=== PATIENT | male | born 1975 | race Asian ===

== ENCOUNTER 2017-08-07 02:17 | Emergency (ER) | payer OTHER ==
[~2017-08-07] VITALS: Ht 162.6 cm; Wt 99.5 kg
[2017-08-07] MEDS ORDERED: KETOROLAC 30 MG/ML VIAL. IV ONE (03:00)
[2017-08-07] MEDS ORDERED: CONTRAST GIVEN MC PRN (03:00)
[2017-08-07] MEDS ORDERED: IOHEXOL 300 MG/ML 75 ML VIAL. IV ONE (03:00)
[2017-08-07] MEDS ORDERED: IV NORMAL SALINE 1,000ML 1,000 ML IV SCH (03:00)
[2017-08-07 03:06] LABS: BASO # 0.2 x10^3/uL (0.0-0.2); BASO % 1 % (0-3); EOS # 0.2 x10^3/uL (0.0-0.7); EOS % 2 % (0-3); HEMATOCRIT 46.7 % (39.0-53.0); LYMPH # 3.4 x10^3/uL (1.0-4.8); LYMPH % 25 % (24-48); MEAN CORPUSCULAR HEMOGLOBIN 30 pg (25-35); MEAN CORPUSCULAR HGB CONC 34 g/dL (31-37); MEAN CORPUSCULAR VOLUME 89 fL (79-100); MONO # 1.3 x10^3/uL (0.0-1.1); MONO % 10 % (0-9); NEUT # 8.5 x10^3uL (1.8-7.7); NEUT % 62 % (31-73); PLATELET COUNT 315 x10^3/uL (140-400); RED BLOOD COUNT 5.26 x10^6/uL (4.30-5.70); WHITE BLOOD COUNT 13.7 x10^3/uL (4.0-11.0)
[2017-08-07 03:08] LABS: BACTERIA,URINE FEW /HPF (0-FEW); BILIRUBIN,URINE NEG (NEG); CLARITY,URINE CLEAR; COLOR,URINE YELLOW; GLUCOSE,URINE NEG (NEG); NITRITE,URINE NEG (NEG); RBC,URINE 0 /HPF (0-2); UROBILINOGEN,URINE 0.2 mg/dL (0.2 mg/dL); WBC,URINE 0 /HPF (0-4)
[2017-08-07 03:09] LABS: SQUAMOUS EPITHELIAL CELL,UR FEW /LPF
[2017-08-07 03:25] LABS: ALBUMIN 3.5 g/dL (3.4-5.0); ALBUMIN/GLOBULIN RATIO 0.9 (1.0-1.7); CALCIUM 8.4 mg/dL (8.5-10.1); CREATININE 0.9 mg/dL (0.7-1.3); GFR 92.5; TOTAL BILIRUBIN 0.3 mg/dL (0.2-1.0); TOTAL PROTEIN 7.2 g/dL (6.4-8.2)
--- NOTE | 2017-08-07 04:55 | PHYS DOC ---
Past History Past Medical History: Anxiety, Kidney Stones, Other Past Surgical History: Other Alcohol Use: Rarely Drug Use: None Adult General Chief Complaint Chief Complaint: ABDOMINAL PAIN HPI HPI 42-year-old male with a history of anxiety as well as prior kidney stones now presents to the emergency department complaining of left lower quadrant abdominal pain this evening. Patient had gradual onset of pain. He has no vomiting or diarrhea. No fevers chills sweats or shaking chills. Remainder of abdomen is asymptomatic specifically right upper and right lower quadrants. Patient states he's never been told he had any intra-abdominal pathology Review of Systems Review of Systems Constitutional: Denies fever or chills [] Eyes: Denies change in visual acuity, redness, or eye pain [] HENT: Denies nasal congestion or sore throat [] Respiratory: Denies cough or shortness of breath [] Cardiovascular: No additional information not addressed in HPI [] GI: Denies abdominal pain, nausea, vomiting, bloody stools or diarrhea [] : Denies dysuria or hematuria [] Musculoskeletal: Denies back pain or joint pain [] Integument: Denies rash or skin lesions [] Neurologic: Denies headache, focal weakness or sensory changes [] Endocrine: Denies polyuria or polydipsia [] All other systems were reviewed and found to be within normal limits, except as documented in this note. Current Medications Current Medications Current Medications Medications (Trade) Dose Ordered Sig/Marshall Start Time Stop Time Status Last Admin Dose Admin Info (Do NOT chart on this entry -- for MONITORING) 1 each PRN DAILY PRN 08/07/17 03:00 08/09/17 02:59 Iohexol (Omnipaque 300 Mg/ml) 75 ml 1X ONCE 08/07/17 03:00 08/07/17 03:01 DC 08/07/17 03:06 75 ML Ketorolac Tromethamine (Toradol) 30 mg 1X ONCE 08/07/17 03:00 08/07/17 03:01 DC 08/07/17 03:00 30 MG Sodium Chloride 1,000 ml @ 1,000 mls/hr Q1H 08/07/17 03:00 08/07/17 03:59 DC 08/07/17 03:00 1,000 MLS/HR Allergies Allergies Allergies Coded Allergies Type Severity Reaction Last Updated Verified No Known Drug Allergies 08/07/17 No Physical Exam Physical Exam Constitutional: Well developed, well nourished, no acute distress, non-toxic appearance. [] HENT: Normocephalic, atraumatic, bilateral external ears normal, oropharynx moist, no oral exudates, nose normal. [] Eyes: PERRLA, EOMI, conjunctiva normal, no discharge. [] Neck: Normal range of motion, no tenderness, supple, no stridor. [] Cardiovascular:Heart rate regular rhythm, no murmur [] Lungs & Thorax: Bilateral breath sounds clear to auscultation [] Abdomen: Bowel sounds normal, soft, positive left lower quadrant tenderness without guarding or rebound, no masses, no pulsatile masses. [] Skin: Warm, dry, no erythema, no rash. [] Back: No tenderness, no CVA tenderness. [] Extremities: No tenderness, no cyanosis, no clubbing, ROM intact, no edema. [] Neurologic: Alert and oriented X 3, normal motor function, normal sensory function, no focal deficits noted. [] Psychologic: Affect normal, judgement normal, mood normal. [] Current Patient Data Vital Signs Vital Signs Date Time Temp Pulse Resp B/P (MAP) Pulse Ox O2 Delivery O2 Flow Rate FiO2 08/07/17 02:20 97.8 80 24 97 Room Air Lab Results Laboratory Tests Test 08/07/17 02:45 White Blood Count 13.7 x10^3/uL (4.0-11.0) H Red Blood Count 5.26 x10^6/uL (4.30-5.70) Hemoglobin 16.0 g/dL (13.0-17.5) Hematocrit 46.7 % (39.0-53.0) Mean Corpuscular Volume 89 fL (79-100) Mean Corpuscular Hemoglobin 30 pg (25-35) Mean Corpuscular Hemoglobin Concent 34 g/dL (31-37) Red Cell Distribution Width 13.0 % (11.5-14.5) Platelet Count 315 x10^3/uL (140-400) Neutrophils (%) (Auto) 62 % (31-73) Lymphocytes (%) (Auto) 25 % (24-48) Monocytes (%) (Auto) 10 % (0-9) H Eosinophils (%) (Auto) 2 % (0-3) Basophils (%) (Auto) 1 % (0-3) Neutrophils # (Auto) 8.5 x10^3uL (1.8-7.7) H Lymphocytes # (Auto) 3.4 x10^3/uL (1.0-4.8) Monocytes # (Auto) 1.3 x10^3/uL (0.0-1.1) H Eosinophils # (Auto) 0.2 x10^3/uL (0.0-0.7) Basophils # (Auto) 0.2 x10^3/uL (0.0-0.2) Urine Collection Type Unknown Urine Color Yellow Urine Clarity Clear Urine pH 5.5 Urine Specific [place] 1.025 Urine Protein Neg (NEG-TRACE) Urine Glucose (UA) Neg mg/dL (NEG) Urine Ketones (Stick) Neg mg/dL (NEG) Urine Blood Neg (NEG) Urine Nitrite Neg (NEG) Urine Bilirubin Neg (NEG) Urine Urobilinogen Dipstick 0.2 mg/dL (0.2 mg/dL) Urine Leukocyte Esterase Neg (NEG) Urine RBC 0 /HPF (0-2) Urine WBC 0 /HPF (0-4) Urine Squamous Epithelial Cells Few /LPF Urine Bacteria Few /HPF (0-FEW) Urine Mucus Slight /LPF Sodium Level 140 mmol/L (136-145) Potassium Level 4.0 mmol/L (3.5-5.1) Chloride Level 104 mmol/L (98-107) Carbon Dioxide Level 26 mmol/L (21-32) Anion Gap 10 (6-14) Blood Urea Nitrogen 16 mg/dL (8-26) Creatinine 0.9 mg/dL (0.7-1.3) Estimated GFR (Cockcroft-Gault) 92.5 BUN/Creatinine Ratio 18 (6-20) Glucose Level 116 mg/dL (70-99) H Calcium Level 8.4 mg/dL (8.5-10.1) L Total Bilirubin 0.3 mg/dL (0.2-1.0) Aspartate Amino Transferase (AST) 23 U/L (15-37) Alanine Aminotransferase (ALT) 56 U/L (16-63) Alkaline Phosphatase 50 U/L (46-116) Total Protein 7.2 g/dL (6.4-8.2) Albumin 3.5 g/dL (3.4-5.0) Albumin/Globulin Ratio 0.9 (1.0-1.7) L Lipase 156 U/L (73-393) EKG EKG [] Radiology/Procedures Radiology/Procedures [] Course & Med Decision Making Course & Med Decision Making She with left lower quadrant abdominal pain. He is well-appearing and hemodynamically stable. Patient has no infectious prodrome. White blood cell count mildly elevated at 13.7 with no bands. Hemodynamically stable on reevaluation. Labs otherwise benign. CT abdomen and pelvis pending. We'll follow radiographic results and correlate with clinical reevaluation for disposition. Pertinent Labs and Imaging studies reviewed. (See chart for details) [] Dragon Disclaimer Dragon Disclaimer This electronic medical record was generated, in whole or in part, using a voice recognition dictation system. Departure Departure: Impression: Primary Impression: Abdominal pain Additional Impressions: Leukocytosis Epiploic appendagitis Cholelithiasis Disposition: HOME, SELF-CARE Condition: IMPROVED Referrals: PCP,UNKNOWN (PCP) Additional Instructions: You are suffering from epiploic appendagitis. This refers to inflammation of a fat lobule on the outside of your sigmoid colon. Your white blood cell count is mildly elevated at 13.7 which is also consistent with the aforementioned diagnosis. Take ibuprofen 800 mg every 6 hours and [place] as needed as prescribed. Rest and drink plenty of fluids. Follow-up with your doctor tomorrow and return immediately for new severe or worsening symptoms. Be aware that U also have gallstones, or cholelithiasis. This was an incidental finding on your CAT scan today, which means that the gallstones have nothing to do with your episode of left lower quadrant pain this visit. As a result, U have the luxury of outpatient follow-up with your doctor for referral to a surgeon to arrange outpatient cholecystectomy, which means gallbladder removal, at your convenience. Scripts Hydrocodone Bit/Acetaminophen (NORCO 5-325 TABLET) 1 Each Tablet 1 TAB PO PRN Q6HRS Y for PAIN, #12 TAB 0 Refills Prov: ELLEN MARTINEZ MD 08/07/17 Problem Qualifiers ELLEN MARTINEZ MD Aug 07, 2017 04:55
[2017-08-07] MEDS ORDERED: LORazepam 2 MG/ML VIAL ONE (04:56)
--- NOTE | 2017-08-07 05:03 | RAD ---
EXAM: CT ABDOMEN/PELVIS WITH CONTRAST. HISTORY: Left lower quadrant pain. TECHNIQUE: Computed tomography of the abdomen and pelvis was performed after the intravenous administration of 75 mL Isovue-[id number]. COMPARISON: None. FINDINGS: Lung windows through the visualized portions of the bases reveal mild atelectasis. Bone windows reveal sclerotic foci in the pelvis measuring up to 1.8 cm on the right. These are most likely benign bone islands in the absence of known malignancy. Hypoattenuation of the hepatic parenchyma indicates severe diffuse hepatic steatosis. There is focal fatty sparing adjacent to the capsule within segment 8 versus a lesion measuring 1.5 cm. The liver is at least mildly enlarged. The spleen is not enlarged. Gallstones are noted. There is no pericholecystic inflammation. The pancreas, adrenal glands and kidneys are unremarkable. There are no pathologically enlarged lymph nodes. There is mild stranding adjacent to the sigmoid colon consistent with epiploic appendicitis on image 51. The appendix is not inflamed. There is no obstruction. IMPRESSION: 1. Findings consistent with epiploic appendicitis along the sigmoid colon. 2. Severe diffuse hepatic steatosis. Focal fatty sparing versus a 1.5 cm lesion in segment 8. Benignity is strongly favored in the absence of known malignancy. MRI could further characterize if there is persistent concern. 3. Sclerotic foci in the pelvis are also likely benign lesion such as bone islands in the absence of known malignancy. *One or more of the following individualized dose reduction techniques were utilized for this examination: 1. Automated exposure control. 2. Adjustment of the mA and/or kV according to patient size. 3. Use of iterative reconstruction technique. Electronically signed by: Hailey Fisher MD (08/07/2017 5:00 AM) [place] [id number]
[2017-08-07] MEDS ORDERED: LORazepam 2 MG/ML VIAL IV ONE (05:15)
[2017-08-07 05:20] VITALS: BP 118/80
[2017-08-07] MEDS ORDERED: HYDR-971 PO (05:28)
== END 2017-08-07 05:50 | disposition home or self-care (01) ==
LOC: ER 02:17
DX: R10.32 Left lower quadrant pain (principal); D72.829 Elevated white blood cell count, unspecified; K63.89 Other specified diseases of intestine; K80.20 Calculus of gallbladder without cholecystitis without obstruction; F41.9 Anxiety disorder, unspecified; Z87.442 Personal history of urinary calculi
CPT/HCPCS: 36415; 74177; 80053; 81001; 83690; 85025; 96361; 96374; 96375; 99285; J1885; J2060; Q9967; J7030